=== PATIENT | female | born 1980 | race Caucasian/White ===

== ENCOUNTER 2016-09-25 11:08 | Emergency (ER) | payer MEDICARE ==
[2016-09-25 12:49] LABS: WHITE BLOOD COUNT 5.7 K/UL (4.5-11.0)
[2016-09-25 13:10] LABS: BUN/CREATININE RATIO 21 (0-10)
== END 2016-09-25 15:07 | disposition home or self-care (01) ==
LOC: ER1 11:08
PROVIDERS: Physician Assistant
DX: N83.201 Unspecified ovarian cyst, right side (principal); K76.0 Fatty (change of) liver, not elsewhere classified; Z90.49 Acquired absence of other specified parts of digestive tract
CPT/HCPCS: 36415; 80053; 81001; 82150; 83690; 84703; 85025; 99284; J7050; Q9962